=== PATIENT | male | born 1990 | race Two or more races ===

== ENCOUNTER 2021-05-27 05:54 | Day surgery (SDC) | payer OTHER ==
[2021-05-27] MEDS ORDERED: PERCOCET 5-3251 EACH PO (10:37)
== END 2021-05-27 14:30 | disposition home or self-care (01) ==
LOC: CIR.AMB 05:54
PROVIDERS: ATTEND Surgery
DX: K60.3 Anal fistula (principal); K62.89 Other specified diseases of anus and rectum; K62.5 Hemorrhage of anus and rectum; Z20.822 Contact with and (suspected) exposure to COVID-19

== ENCOUNTER 2021-07-18 12:16 | Emergency (ER) | payer OTHER ==
[~2021-07-18] VITALS: Ht 175.3 cm; Wt 53.1 kg
[~2021-07-18 12:16] MED LIST: PERCOCET 5-3251 EACH PO
== END 2021-07-18 16:12 | disposition home or self-care (01) ==
LOC: ER 12:16
DX: K62.5 Hemorrhage of anus and rectum (principal); D64.9 Anemia, unspecified; K60.4 Rectal fistula